=== PATIENT | male | born 1955 | race Caucasian/White ===

== ENCOUNTER 2021-01-11 11:14 | Emergency (ER) | payer SELFPAY ==
[~2021-01-11] VITALS: Ht 177.8 cm; Wt 100.0 kg
[2021-01-11] MEDS ORDERED: IBUPROFEN 800MG TABLET PO ONE (12:00)
[2021-01-11 14:00] VITALS: BP 161/89
[2021-01-11] MEDS ORDERED: IBUP-2030 MT (14:18)
== END 2021-01-11 14:51 | disposition home or self-care (01) ==
LOC: ER 11:14
DX: S70.02XA Contusion of left hip, initial encounter (principal); S70.01XA Contusion of right hip, initial encounter; S30.0XXA Contusion of lower back and pelvis, initial encounter; E11.9 Type 2 diabetes mellitus without complications; I10 Essential (primary) hypertension; Z79.899 Other long term (current) drug therapy; V09.9XXA Pedestrian injured in unspecified transport accident, initial encounter; Y93.01 Activity, walking, marching and hiking; Y92.89 Other specified places as the place of occurrence of the external cause; Y99.8 Other external cause status
CPT/HCPCS: 72100; 73522; 99284